=== PATIENT | male | born 2000 | race Caucasian/White ===

== ENCOUNTER 2023-01-11 07:58 | Day surgery (SDC) | payer OTHER ==
[2023-01-07 15:01] VITALS: BMI 24.3
[2023-01-11 08:14] VITALS: TEMP 97.8
[2023-01-11] MEDS ORDERED: MIDAZOLAM HCL 2 MG/2 ML SINGLE DOSE VIAL ONE ×2 (09:24→10:10)
[2023-01-11] MEDS ORDERED: DEXAMETHASONE SOD PHOSPHATE/PF 10 MG/ML SDV ONE ×2 (09:39→10:09)
[2023-01-11] MEDS ORDERED: ROPIVACAINE HCL 0.5% 30ML VIAL ONE ×2 (09:39→10:09)
[2023-01-11] MEDS ORDERED: ONDANSETRON 4 MG/2 ML VIAL ONE (10:33)
[2023-01-11] MEDS ORDERED: ceFAZolin SODIUM 1 GM VIAL ONE (10:33)
[2023-01-11] MEDS ORDERED: DEXAMETHASONE SOD PHOSPHATE 4 MG/1 ML VIAL ONE (10:33)
[2023-01-11] MEDS ORDERED: PROPOFOL 20 ML ONE ×2 (10:33→11:10)
[2023-01-11 11:51] VITALS: RESP 16
[2023-01-11 12:27] VITALS: BP 115/52; PULSE 86
== END 2023-01-11 12:38 | disposition home or self-care (01) ==
LOC: FASU 07:58
PROVIDERS: ATTEND Orthopaedic Surgery
PROC: 0LM24ZZ Reattachment of Left Shoulder Tendon, Percutaneous Endoscopic Approach (ICD-10-PCS; principal; 2023-01-11 10:51)
DX: M25.311 Other instability, right shoulder (principal); M24.112 Other articular cartilage disorders, left shoulder
CPT/HCPCS: C1713

== ENCOUNTER → 2024-08-04 | Day surgery (SDC) | payer OTHER | END | disposition home or self-care (01) | LOC: JRADIR 09:44 | PROVIDERS: ATTEND Orthopaedic Surgery | PROC: BP39YZZ Magnetic Resonance Imaging (MRI) of Left Shoulder using Other Contrast (ICD-10-PCS; principal; 2024-08-04) | DX: M25.512 Pain in left shoulder (principal) | CPT/HCPCS: 23350; 73040-TC-FY; 73222-TC ==